=== PATIENT | male | born 1990 | race Caucasian/White ===

== ENCOUNTER 2016-04-15 01:21 | Emergency (ER) | payer BC, OTHER ==
[~2016-04-15 01:21] MED LIST: Z.0.NO CURRENT MEDS
[2016-04-15 01:24] VITALS: BP 179/104; PULSE 98; RESP 18; TEMP 98; O2SAT 99
[2016-04-15] MEDS ORDERED: SODIUM CHLORIDE 0.9% FLUSH 5 ML FLUSH IVF PRN (02:15)
[2016-04-15] MEDS ORDERED: ONDANSETRON HCL 4 MG/2 ML VIAL IV ONE (02:15)
[2016-04-15] MEDS ORDERED: KETOROLAC TROMETHAMINE 30 MG/ML (IVP) VIAL IV PUSH ONE (02:15)
[2016-04-15] MEDS ORDERED: SODIUM CHLOR 0.9% 1000 ML INJ 1,000 ML IV ONE (02:15)
[2016-04-15 02:18] VITALS: O2SAT 98
[2016-04-15 02:51] LABS: AUTOMATED NEUTROPHIL # 9.1 TH/MM3 (1.8-7.7); BASOPHIL % 0.4 % (0.0-2.0); EOSINOPHIL # 0.5 TH/MM3 (0-0.4); EOSINOPHIL % 4.4 % (0.0-4.0); HEMATOCRIT 38.4 % (39.0-51.0); HEMO FLAGS DIFF FINAL; LYMPH % 14.9 % (9.0-44.0); LYMPHOCYTE # 1.8 TH/MM3 (1.0-4.8); MEAN CELL VOLUME 89.6 FL (80.0-100.0); MEAN CORPUSCULAR HEMOGLOBIN 30.6 PG (27.0-34.0); MEAN CORPUSCULAR HGB CONC 34.2 % (32.0-36.0); MONO % 6.2 % (0.0-8.0); NEUT % 74.1 % (16.0-70.0); PLATELET COUNT 268 TH/MM3 (150-450); RED BLOOD COUNT 4.29 MIL/MM3 (4.50-5.90); RED CELL DISTRIBUTION WIDTH 12.6 % (11.6-17.2); WHITE BLOOD COUNT 12.3 TH/MM3 (4.0-11.0)
[2016-04-15 02:54] LABS: BLOOD, URINE MOD (NEG); COMMENT (UR) CULT NOT INDICATED; CULTURE IF INDICATED CULT NOT INDICATED; GLUCOSE,URINE NEG (NEG); KETONE, URINE NEG (NEG); MUCUS URINE FEW /lpf (OCC); NITRITE,URINE NEG (NEG); PH, URINE 5.5 (5.0-8.5); URINE COLOR YELLOW (YELLW/STRAW)
[2016-04-15 03:05] LABS: ALT (GPT) 37 U/L (12-78); ANION GAP 9 MEQ/L (5-15); AST (GOT) 19 U/L (15-37); BICARBONATE 27.8 MEQ/L (21.0-32.0); BLOOD UREA NITROGEN 13 MG/DL (7-18); CHLORIDE 104 MEQ/L (98-107); GLOMERULAR FILTRATION RATE 96 ML/MIN (>89); POTASSIUM 3.9 MEQ/L (3.5-5.1); SODIUM (NA) 141 MEQ/L (136-145)
[2016-04-15 03:07] LABS: ALKALINE PHOSPHATASE 52 U/L (45-117); TOTAL BILIRUBIN ADULT 0.3 MG/DL (0.2-1.0)
--- NOTE | 2016-04-15 03:26 | RADRPT ---
EXAM DATE/TIME: 04/15/2016 02:42 [place] COMPARISON: No previous studies available for comparison. INDICATIONS : Bilateral flank and abdomen pain. ORAL CONTRAST: No oral contrast ingested. RADIATION DOSE: 31.52 CTDIvol (mGy) MEDICAL HISTORY : None SURGICAL HISTORY : None. ENCOUNTER: Initial ACUITY: 3 days PAIN SCALE: 8/10 LOCATION: Bilateral flank abdomen TECHNIQUE: Volumetric scanning of the abdomen and pelvis was performed. Using automated exposure control and ad justment of the mA and/or kV according to patient size, radiation dose was kept as low as reasonably achievable to obtain optimal diagnostic quality images. FINDINGS: Lung bases are clear. No acute findings in the liver, spleen, adrenals, left kidney or pancreas. No c alcified gallstones or biliary ductal dilatation. There is a right-sided obstructive uropathy with mild right hydronephrosis and ureteral dilatation ab ove a 5 mm x 4 mm calculus present in the distal right ureter as it crosses the iliac artery. No blad raquel calculi. No renal calculi. CONCLUSION: 1. Right-sided obstructive uropathy secondary to a 5 mm x 4 mm calculus in the distal right ureter as it crosses the right external iliac artery. No other renal or ureteral or bladder calculi identified . Shahid Price MD on April 15, 2016 at 3:21 Board Certified Radiologist. This report was verified electronically.
--- NOTE | 2016-04-15 03:57 | PD ---
HPI Chief Complaint: Flank/Kidney Pain Time Seen by Provider: 02:15 Travel History International Travel<30 days: No Contact w/Intl Traveler<30days: No Traveled to known affect area: No History of Present Illness HPI The patient is a 25 year old male who presents to the [facility] emergency department with a history of bilateral flank pain that began one week ago. He reports that the pain began to radiate down into bilateral sides of his pelvis. He reports that became worse and more persistent over the last 3 days. He reports that 2 days ago he noticed some blood in his urine, however no blood in his urine since then. He denies having any dysuria, urinary urgency, or urinary frequency. He is however concerned that he may have a kidney stone. He denies ever having a kidney stone previously. He denies having any nausea, vomiting, or diarrhea associated with this. He reports that he last moved his bowels earlier today. He denies having any blood in his stool or black or tarry stools. The patient denies any recent fevers, cough, congestion, neck pain , chest pain, shortness of breath, or neurologic symptoms. FOR[facility]LY [facility], LATER [facility] Past Medical History Narrative Medical The patient's past medical history is significant for none. Medical History: Denies Significant Hx Diminished Hearing: No Tetanus Vaccination: Unknown Influenza Vaccination: No Past Surgical History Narrative Surgical The patient's past surgical history is significant for a tonsillectomy. Tonsillectomy: Yes (when he was 1 years old) Social History Alcohol Use: No Tobacco Use: No Substance Use: No Allergies-Medications (Allergen,Severity, Reaction): Coded Allergies: Penicillin (Verified Allergy, Mild, 04/15/16) Reported Meds & Prescriptions Reported Meds & Active Scripts Active No Active Prescriptions or Reported Medications Review of Systems Except as stated in HPI: all other systems reviewed are Neg General / Constitutional: No: Fever Eyes: No: Visual changes HENT: No: Headaches Cardiovascular: No: Chest Pain or Discomfort Respiratory: No: Shortness of Breath Gastrointestinal: Positive: Abdominal Pain, No: Nausea, Vomiting, Diarrhea, Changes in Bowel Habits, Loss of Appetite Genitourinary: Positive: Hematuria, Flank Pain (bilateral), No: Urgency, Frequency, Dysuria Musculoskeletal: No: Pain Skin: No Rash Neurologic: No: Weakness, Focal Abnormalities, Change in Mentation, Sensory Disturbance Psychiatric: No: Depression Endocrine: No: Polydipsia Hematologic/Lymphatic: No: Easy Bruising Physical Exam Narrative General: The patient is a well-developed well-nourished male in no acute distress. Head and Neck exam: Head is normocephalic atraumatic. Eyes: Pupils are equal round and reactive to light. Nose: Midline septum with pink mucous membranes Mouth: Dentition unremarkable. Moist mucus membranes. Posterior oropharynx is not erythematous. No tonsillar hypertrophy. Uvula midline. Airway patent. Neck: No palpable lymphadenopathy. No nuchal rigidity. No thyromegaly. Cardiovascular: Regular rate and rhythm without murmurs, gallops, or rubs. Lungs: Clear to auscultation bilaterally. No wheezes, rhonchi, or rales. Abdomen: Soft, with tenderness on palpation of bilateral lower quadrants of the abdomen and down into the pelvis, no tenderness on palpation of the upper quadrants of the abdomen. Negative Toledo's sign. No tenderness on palpation of McBurney's point. No guarding, rebound, or rigidity. Extremities: No clubbing, cyanosis, or edema. 2+ pulses in all 4 extremities. No calf tenderness on palpation. Back: No spinous process tenderness to palpation. No costovertebral angle tenderness to palpation. Neurologic Exam: Grossly nonfocal. Skin Exam: No rash noted. Intact skin that is warm and dry. Data Data Last Documented VS Vital Signs Date Time Temp Pulse Resp B/P Pulse Ox O2 Delivery O2 Flow Rate FiO2 04/15/16 02:18 98 Room Air 04/15/16 01:26 16 04/15/16 01:24 98.0 98 179/104 Orders Complete Blood Count With Diff (04/15/16 02:15) Comprehensive Metabolic Panel (04/15/16 02:15) Lipase (04/15/16 02:15) Urinalysis - C+S If Indicated (04/15/16 02:15) Ct Abd/Pel W/O Iv Contrast (04/15/16 02:15) Iv Access Insert/Monitor (04/15/16 02:15) Ecg Monitoring (04/15/16 02:15) Oximetry (04/15/16 02:15) Sodium Chloride 0.9% Flush (Ns Flush) (04/15/16 02:15) Sodium Chlor 0.9% 1000 Ml Inj (Ns 1000 M (04/15/16 02:15) Ondansetron Inj (Zofran Inj) (04/15/16 02:15) Ketorolac Inj (Toradol Inj) (04/15/16 02:15) Labs Laboratory Tests Test 04/15/16 04/15/16 02:09 02:30 White Blood Count 12.3 TH/MM3 Red Blood Count 4.29 MIL/MM3 Hemoglobin 13.1 GM/DL Hematocrit 38.4 % Mean Corpuscular Volume 89.6 FL Mean Corpuscular Hemoglobin 30.6 PG Mean Corpuscular Hemoglobin 34.2 % Concent Red Cell Distribution Width 12.6 % Platelet Count 268 TH/MM3 Mean Platelet Volume 8.3 FL Neutrophils (%) (Auto) 74.1 % Lymphocytes (%) (Auto) 14.9 % Monocytes (%) (Auto) 6.2 % Eosinophils (%) (Auto) 4.4 % Basophils (%) (Auto) 0.4 % Neutrophils # (Auto) 9.1 TH/MM3 Lymphocytes # (Auto) 1.8 TH/MM3 Monocytes # (Auto) 0.8 TH/MM3 Eosinophils # (Auto) 0.5 TH/MM3 Basophils # (Auto) 0.0 TH/MM3 CBC Comment DIFF FINAL Differential Comment Sodium Level 141 MEQ/L Potassium Level 3.9 MEQ/L Chloride Level 104 MEQ/L Carbon Dioxide Level 27.8 MEQ/L Anion Gap 9 MEQ/L Blood Urea Nitrogen 13 MG/DL Creatinine 0.95 MG/DL Estimat Glomerular Filtration 96 ML/MIN Rate Random Glucose 140 MG/DL Calcium Level 9.0 MG/DL Total Bilirubin 0.3 MG/DL Aspartate Amino Transf 19 U/L (AST/SGOT) Alanine Aminotransferase 37 U/L (ALT/SGPT) Alkaline Phosphatase 52 U/L Total Protein 7.6 GM/DL Albumin 4.0 GM/DL Lipase 154 U/L Urine Color YELLOW Urine Turbidity CLEAR Urine pH 5.5 Urine Specific [place] 1.016 Urine Protein NEG mg/dL Urine Glucose (UA) NEG mg/dL Urine Ketones NEG mg/dL Urine Occult Blood MOD Urine Nitrite NEG Urine Bilirubin NEG Urine Urobilinogen LESS THAN 2.0 MG/DL Urine Leukocyte Esterase NEG Urine RBC /hpf Urine WBC 8 /hpf Urine Mucus FEW /lpf Urine Yeast (Budding) OCC Microscopic Urinalysis Comment CULT NOT INDICATED MDM Medical Decision Making Medical Screen Exam Complete: Yes Emergency Medical Condition: Yes Medical Record Reviewed: Yes Interpretation(s) Laboratory Tests Test 04/15/16 04/15/16 02:09 02:30 White Blood Count 12.3 TH/MM3 Red Blood Count 4.29 MIL/MM3 Hemoglobin 13.1 GM/DL Hematocrit 38.4 % Mean Corpuscular Volume 89.6 FL Mean Corpuscular Hemoglobin 30.6 PG Mean Corpuscular Hemoglobin 34.2 % Concent Red Cell Distribution Width 12.6 % Platelet Count 268 TH/MM3 Mean Platelet Volume 8.3 FL Neutrophils (%) (Auto) 74.1 % Lymphocytes (%) (Auto) 14.9 % Monocytes (%) (Auto) 6.2 % Eosinophils (%) (Auto) 4.4 % Basophils (%) (Auto) 0.4 % Neutrophils # (Auto) 9.1 TH/MM3 Lymphocytes # (Auto) 1.8 TH/MM3 Monocytes # (Auto) 0.8 TH/MM3 Eosinophils # (Auto) 0.5 TH/MM3 Basophils # (Auto) 0.0 TH/MM3 CBC Comment DIFF FINAL Differential Comment Sodium Level 141 MEQ/L Potassium Level 3.9 MEQ/L Chloride Level 104 MEQ/L Carbon Dioxide Level 27.8 MEQ/L Anion Gap 9 MEQ/L Blood Urea Nitrogen 13 MG/DL Creatinine 0.95 MG/DL Estimat Glomerular Filtration 96 ML/MIN Rate Random Glucose 140 MG/DL Calcium Level 9.0 MG/DL Total Bilirubin 0.3 MG/DL Aspartate Amino Transf 19 U/L (AST/SGOT) Alanine Aminotransferase 37 U/L (ALT/SGPT) Alkaline Phosphatase 52 U/L Total Protein 7.6 GM/DL Albumin 4.0 GM/DL Lipase 154 U/L Urine Color YELLOW Urine Turbidity CLEAR Urine pH 5.5 Urine Specific [place] 1.016 Urine Protein NEG mg/dL Urine Glucose (UA) NEG mg/dL Urine Ketones NEG mg/dL Urine Occult Blood MOD Urine Nitrite NEG Urine Bilirubin NEG Urine Urobilinogen LESS THAN 2.0 MG/DL Urine Leukocyte Esterase NEG Urine RBC /hpf Urine WBC 8 /hpf Urine Mucus FEW /lpf Urine Yeast (Budding) OCC Microscopic Urinalysis Comment CULT NOT INDICATED Last Impressions Abdomen/Pelvis CT 04/15/16 0215 Signed Impressions: Service Date/Time: Friday, April 15, 2016 02:42 - CONCLUSION: 1. Right- sided obstructive uropathy secondary to a 5 mm x 4 mm calculus in the distal right ureter as it crosses the right external iliac artery. No other renal or ureteral or bladder calculi identified. Shahid Price MD Differential Diagnosis Pyelonephritis, versus constipation, versus diverticulitis, versus musculoskeletal strain, versus colitis, versus kidney stone Narrative Course During the course of the patients emergency department visit, the patients history, examination, and differential diagnosis were reviewed with the patient. The patient had IV access obtained and blood work sent for analysis. The patient was put on a telemetry monitor with oximetry and blood pressure monitoring. A CT scan of the abdomen and pelvis was ordered to evaluate for possible kidney stone. The patient was provided normal saline 1 L IV fluid bolus, Toradol 30 mg IV. The patients laboratory studies were reviewed and remarkable for a white count of 12.3, hemoglobin 13.1, platelets 268, neutrophils 74.1, CMP is remarkable for a glucose of 140, lipase 154, urinalysis shows moderate occult blood innumerable rbc's 8 WBCs. Radiology studies were reviewed and remarkable for a CT scan of the abdomen and pelvis that reveals a right-sided obstructive uropathy, secondary to a 5 mm x 4 mm calculus in the distal right ureter as it crosses the right external iliac artery, no other renal or ureteral calculi. The patient will be discharged home with a prescription for pain medication, Flomax, and also provided a urine strainer. The patient will be given the name of the urologist on-call, Dr. Mckeon for follow-up with this week. The patient is resting comfortably and feels better, is alert and in no distress. The patients results and examination findings were discussed with the patient. The repeat examination is unremarkable and benign. The history, exam, diagnostic testing, and current condition do not suggest any significant pathology to warrant further testing, continued ED treatment, admission, or surgical evaluation at this point. The vital signs have been stable. The patient does not have uncontrollable pain, intractable vomiting, or other significant symptoms. The patient's condition is stable and appropriate for discharge. The patient will pursue further outpatient evaluation with a primary care physician or other designated or consulting physician as indicated in the discharge instructions. The patient expressed understanding and was agreeable with this plan. Diagnosis Primary Impression: Ureteral calculi Referrals: Nuno Mckeon MD 2 days Patient Instructions: General Instructions, Kidney Stones (ED) Departure Forms: Tests/Procedures, Work Release Enter return to work date: Apr 17, 2016 Med/Other Pt SpecificInfo: Prescription(s) given Scripts Ibuprofen 600 Mg [id number] Mg PO Q8HR PRN (PAIN) #12 TAB Ref 0 Prov:Evelia Holder MD 04/15/16 Hydrocodone-Acetaminophen (Lortab)7.5-325 Mg Tab1 Tab PO Q6H PRN (PAIN) #12 TAB Ref 0 Prov:Evelia Holder MD 04/15/16 Tamsulosin (Flomax)0.4 Mg Cap0.4 Mg PO HS #14 CAP Ref 0 Prov:Evelia Holder MD 04/15/16 Disposition: 01 DISCHARGE HOME Condition: Stable Evelia Holder MD Apr 15, 2016 03:57
[2016-04-15] MEDS ORDERED: HYDR-3534 PO (04:05)
[2016-04-15] MEDS ORDERED: IBUP-232 PO (04:05)
[2016-04-15] MEDS ORDERED: TAMS5CAP PO (04:05)
== END 2016-04-15 04:25 | disposition home or self-care (01) ==
LOC: NEPE 01:21
DX: N20.1 Calculus of ureter (principal); N13.9 Obstructive and reflux uropathy, unspecified; R31.9 Hematuria, unspecified
CPT/HCPCS: 74176; 80053; 81001; 83690; 85025; 96361; 96374; 96375; 99284; J1885; J2405; J7030

== ENCOUNTER 2016-06-21 00:38 | Emergency (ER) | payer BC ==
[~2016-06-21] VITALS: Ht 170.2 cm; Wt 121.0 kg
[~2016-06-21 00:38] MED LIST changes: +HYDR-3534 PO; +IBUP-232 PO; +TAMS5CAP PO; -Z.0.NO CURRENT MEDS
[2016-06-21 00:39] VITALS: BP 176/112; PULSE 106; RESP 18; TEMP 98.9; O2SAT 99
[2016-06-21] MEDS ORDERED: MORPHINE SULFATE 4 MG/ML INJ IV ONE (01:45)
[2016-06-21] MEDS ORDERED: KETOROLAC TROMETHAMINE 30 MG/ML (IVP) VIAL IV PUSH ONE (01:45)
[2016-06-21] MEDS ORDERED: ONDANSETRON HCL 4 MG/2 ML VIAL IV PUSH ONE (01:45)
[2016-06-21] MEDS ORDERED: SODIUM CHLOR 0.9% 1000 ML INJ 1,000 ML IV ONE (01:45)
[2016-06-21] MEDS ORDERED: ONDANSETRON HCL 4 MG/2 ML VIAL ONE (01:50)
[2016-06-21] MEDS ORDERED: MORPHINE SULFATE 4 MG/ML INJ ONE (01:50)
[2016-06-21] MEDS ORDERED: KETOROLAC TROMETHAMINE 30 MG/ML (IVP) VIAL ONE (01:50)
--- NOTE | 2016-06-21 03:12 | PD ---
HPI Chief Complaint: Flank/Kidney Pain Time Seen by Provider: 02:37 Travel History International Travel<30 days: No Contact w/Intl Traveler<30days: No Traveled to known affect area: No History of Present Illness HPI Is a 25 year-old man who presents to the emergency department complaining of right sided flank pain. He underwent a procedure on the second, 5 days ago, with Dr. Velasquez, bradycardia had ureteroscopy, laser lithotripsy, and ureteral stent placed. He's been doing well with intermittent pain. Tonight the patient was worse and it wasn't really relieved with his Percocet. No fevers or chills. Some nausea but no vomiting. No other complaints. History Past Medical History Medical History: Denies Significant Hx Tetanus Vaccination: < 5 Years Influenza Vaccination: Yes Social History Alcohol Use: Yes (2 XS WEEKLY) Tobacco Use: No Allergies-Medications (Allergen,Severity, Reaction): Coded Allergies: Penicillin (Verified Allergy, Mild, 06/21/16) Reported Meds & Prescriptions Reported Meds & Active Scripts Active Ibuprofen 600 Mg Tab 600 Mg PO Q8HR PRN Lortab (Hydrocodone-Acetaminophen) 7.5-325 Mg Tab 1 Tab PO Q6H PRN Flomax (Tamsulosin HCl) 0.4 Mg Cap 0.4 Mg PO HS Review of Systems Except as stated in HPI: all other systems reviewed are Neg Physical Exam Narrative GENERAL: 25 year-old man, no acute distress. SKIN: Focused skin assessment warm/dry. CARDIOVASCULAR: Regular rate and rhythm. No murmur appreciated. RESPIRATORY: No accessory muscle use. Clear to auscultation. Breath sounds equal bilaterally. GASTROINTESTINAL: Abdomen soft, non-tender, nondistended. Hepatic and splenic margins not palpable. MUSCULOSKELETAL: No obvious deformities. No clubbing. No cyanosis. No edema. NEUROLOGICAL: Awake and alert. No obvious cranial nerve deficits. Motor grossly within normal limits. Normal speech. PSYCHIATRIC: Appropriate mood and affect; insight and judgment normal. Data Data Last Documented VS Vital Signs Date Time Temp Pulse Resp B/P Pulse Ox O2 Delivery O2 Flow Rate FiO2 06/21/16 00:39 98.9 106 18 176/112 99 Room Air Orders Ketorolac Inj (Toradol Inj) (06/21/16 01:50) Ondansetron Inj (Zofran Inj) (06/21/16 01:50) Morphine Inj (Morphine Inj) (06/21/16 01:50) Morphine Inj (Morphine Inj) (06/21/16 01:45) Ketorolac Inj (Toradol Inj) (06/21/16 01:45) Ondansetron Inj (Zofran Inj) (06/21/16 01:45) Sodium Chlor 0.9% 1000 Ml Inj (Ns 1000 M (06/21/16 01:45) MDM Medical Decision Making Medical Screen Exam Complete: Yes Emergency Medical Condition: Yes Differential Diagnosis Renal lithiasis, ureterolithiasis, obstruction, malfunctioning stent, other Narrative Course Medical decision making To 25 year-old man who presents emergency Department with right flank pain following laser lithotripsy and stent placement. Point of care or ultrasound shows no significant hydronephrosis. Recommend outpatient follow-up. Patient was seen and evaluated discharge during downtime. Patient was given Verbal and written discharge instructions. Procedures Procedure Narrative Point of care ultrasound: Focus transabdominal ultrasound performed by me at the bedside to evaluate for presence or absence of hydronephrosis shows no significant hydronephrosis on the right. Diagnosis Primary Impression: Flank pain Disposition: DISCHARGE HOME Condition: Stable Ernst Bedolla MD June 21, 2016 03:12
== END 2016-06-21 03:54 | disposition home or self-care (01) ==
LOC: NED 00:38 → NEPC 03:54
DX: R10.9 Unspecified abdominal pain (principal); Z88.0 Allergy status to penicillin
CPT/HCPCS: 99283; J1885; J2270; J2405

== ENCOUNTER 2016-09-09 14:01 | Emergency (ER) | payer BC ==
[~2016-09-09] VITALS: Ht 170.2 cm; Wt 120.0 kg
[2016-09-09 14:47] VITALS: BP 109/60; PULSE 112; RESP 24; TEMP 98.8; O2SAT 97
[2016-09-09 14:52] VITALS: BP 145/64; PULSE 110; RESP 18; O2SAT 97
[2016-09-09] MEDS ORDERED: SODIUM CHLOR 0.9% 1000 ML INJ 1,000 ML IV SCH (14:56)
[2016-09-09] MEDS ORDERED: SODIUM CHLOR 0.9% 1000 ML INJ 1,000 ML IV ONE (14:56)
[2016-09-09] MEDS ORDERED: ONDANSETRON HCL 4 MG/2 ML VIAL IV PUSH ONE (15:00)
[2016-09-09] MEDS ORDERED: SODIUM CHLORIDE 0.9% FLUSH 10 ML FLUSH IVF PRN (15:00)
--- NOTE | 2016-09-09 15:05 | PD ---
HPI Chief Complaint: GI Complaint Time Seen by Provider: 14:45 Travel History International Travel<30 days: No Contact w/Intl Traveler<30days: No Traveled to known affect area: No History of Present Illness HPI 25-year-old male with no significant past medical history presents for evaluation of nausea, vomiting, diarrhea. Symptoms started this morning. He reports at least 10 episodes of diarrhea and vomiting today. He reports that the diarrhea was bloody in appearance. He denies any abdominal pain, fevers or chills, flank pain. He does report that last night he ate some salmon and sushi. Beyond that, he denies any unusual foods. Denies any sick contacts or recent travel. Denies any recent antibiotic use. He has no other complaints at this time. Primary care physician is Dr. Randolph. [facility] Past Medical History Diminished Hearing: No Past Surgical History Tonsillectomy: Yes (when he was 1 years old) Other Surgery: Yes (STENT PLACED RIGHT KIDNEY.) Social History Alcohol Use: Yes (2 XS WEEKLY) Tobacco Use: No Substance Use: No Allergies-Medications (Allergen,Severity, Reaction): Coded Allergies: Penicillin (Verified Allergy, Mild, 06/21/16) Reported Meds & Prescriptions Reported Meds & Active Scripts Active Zofran Odt (Ondansetron Odt) 4 Mg Tab 4 Mg SL Q6HR PRN Review of Systems Except as stated in HPI: all other systems reviewed are Neg Physical Exam Narrative GENERAL: Well-developed well-nourished male in no acute distress. He does appear slightly pale and tachycardic. SKIN: Warm and dry. HEAD: Atraumatic. Normocephalic. EYES: Pupils equal and round. No scleral icterus. No injection or drainage. ENT: No nasal bleeding or discharge. Mucous membranes pink and moist. NECK: Trachea midline. No JVD. CARDIOVASCULAR: Regular rate and rhythm. No murmur appreciated. RESPIRATORY: No accessory muscle use. Clear to auscultation. Breath sounds equal bilaterally. GASTROINTESTINAL: Abdomen soft, non-tender, nondistended. Hepatic and splenic margins not palpable. Rectal examination reveals no obvious anal fissures or external hemorrhoids. Hemoccult positive. MUSCULOSKELETAL: No obvious deformities. No clubbing. No cyanosis. No edema. NEUROLOGICAL: Awake and alert. No obvious cranial nerve deficits. Motor grossly within normal limits. Normal speech. PSYCHIATRIC: Appropriate mood and affect; insight and judgment normal. Data Data Last Documented VS Vital Signs Date Time Temp Pulse Resp B/P Pulse Ox O2 Delivery O2 Flow Rate FiO2 09/09/16 17:16 106 18 103/65 98 Room Air 09/09/16 14:47 98.8 Orders Complete Blood Count With Diff (09/09/16 14:56) Comprehensive Metabolic Panel (09/09/16 14:56) Lipase (09/09/16 14:56) Iv Access Insert/Monitor (09/09/16 14:56) Ecg Monitoring (09/09/16 14:56) Oximetry (09/09/16 14:56) Sodium Chlor 0.9% 1000 Ml Inj (Ns 1000 M (09/09/16 14:56) Sodium Chloride 0.9% Flush (Ns Flush) (09/09/16 15:00) Enteric Path (Stool) (09/09/16 14:56) Rotavirus Ag Detection (Stool) (09/09/16 14:56) Sodium Chlor 0.9% 1000 Ml Inj (Ns 1000 M (09/09/16 14:56) Ondansetron Inj (Zofran Inj) (09/09/16 15:00) Urinalysis - C+S If Indicated (09/09/16 14:56) Stool Wbc (Leukocytes) (09/09/16 14:56) Potassium, Serum (K) (09/09/16 16:19) Labs Laboratory Tests Test 09/09/16 09/09/16 09/09/16 15:12 16:00 16:35 White Blood Count 15.9 TH/MM3 Red Blood Count 4.82 MIL/MM3 Hemoglobin 14.7 GM/DL Hematocrit 44.4 % Mean Corpuscular Volume 92.1 FL Mean Corpuscular Hemoglobin 30.5 PG Mean Corpuscular Hemoglobin 33.1 % Concent Red Cell Distribution Width 12.9 % Platelet Count 326 TH/MM3 Mean Platelet Volume 8.4 FL Neutrophils (%) (Auto) 86.8 % Lymphocytes (%) (Auto) 3.1 % Monocytes (%) (Auto) 9.2 % Eosinophils (%) (Auto) 0.7 % Basophils (%) (Auto) 0.2 % Neutrophils # (Auto) 13.8 TH/MM3 Lymphocytes # (Auto) 0.5 TH/MM3 Monocytes # (Auto) 1.5 TH/MM3 Eosinophils # (Auto) 0.1 TH/MM3 Basophils # (Auto) 0.0 TH/MM3 CBC Comment DIFF FINAL Differential Comment Sodium Level 138 MEQ/L Potassium Level 5.6 MEQ/L 4.4 MEQ/L Chloride Level 105 MEQ/L Carbon Dioxide Level 24.6 MEQ/L Anion Gap 8 MEQ/L Blood Urea Nitrogen 17 MG/DL Creatinine 1.07 MG/DL Estimat Glomerular Filtration 84 ML/MIN Rate Random Glucose 116 MG/DL Calcium Level 9.0 MG/DL Total Bilirubin 0.8 MG/DL Aspartate Amino Transf 43 U/L (AST/SGOT) Alanine Aminotransferase 46 U/L (ALT/SGPT) Alkaline Phosphatase 55 U/L Total Protein 8.3 GM/DL Albumin 4.1 GM/DL Lipase 140 U/L Urine Color YELLOW Urine Turbidity CLEAR Urine pH 7.0 Urine Specific [place] 1.030 Urine Protein 30 mg/dL Urine Glucose (UA) NEG mg/dL Urine Ketones NEG mg/dL Urine Occult Blood NEG Urine Nitrite NEG Urine Bilirubin NEG Urine Urobilinogen LESS THAN 2.0 MG/DL Urine Leukocyte Esterase NEG Urine RBC 2 /hpf Urine WBC 1 /hpf Urine Mucus FEW /lpf Microscopic Urinalysis Comment CULT NOT INDICATED MDM Medical Decision Making Medical Screen Exam Complete: Yes Emergency Medical Condition: Yes Medical Record Reviewed: Yes Differential Diagnosis Gastroenteritis, food poisoning, dehydration, electrolyte abnormality, GI bleed Narrative Course This is a 25 her old male who reports that he ate some salmon sushi yesterday evening. He woke up today with multiple episodes of nausea, vomiting and diarrhea. The diarrhea has been bloody. He is had no abdominal pain and his abdomen is soft and nontender. He has no history of C. difficile and denies any recent antibiotic use I doubt C. difficile. I do suspect food poisoning/ gastroenteritis. Given the history of bloody stools, enteric pathogen stool cultures have been ordered. Plan is for basic lab work, 2 L of IV fluids have been initiated, he will be given Zofran for his nausea. The patient's lab work has been reviewed. Upon reexamination he feels significantly improved. The patient was able to make a stool sample which is currently pending. He is stable for discharge. [facility] Point of Care Internal Pos. & Neg. Controls: Passed Fecal Specimen Occult Blood: Positive Diagnosis Primary Impression: Gastroenteritis Additional Instructions: Zofran as needed for diet. Stay well hydrated. Slowly advance diet as tolerated. Follow up in 3-4 days with primary care physician for recheck. Return for any emergent medical conditions. Med/Other Pt SpecificInfo: Prescription(s) given Scripts Ondansetron Odt (Zofran Odt)4 Mg Tab4 Mg SL Q6HR PRN (Nausea/Vomiting) #30 TAB Ref 0 Prov:Brady Andrade MD 09/09/16 Disposition: 01 DISCHARGE HOME Condition: Stable Richar Barrios Sep 09, 2016 15:05
[2016-09-09 15:49] LABS: AUTOMATED NEUTROPHIL # 13.8 TH/MM3 (1.8-7.7); BASOPHIL % 0.2 % (0.0-2.0); EOSINOPHIL # 0.1 TH/MM3 (0-0.4); EOSINOPHIL % 0.7 % (0.0-4.0); HEMATOCRIT 44.4 % (39.0-51.0); HEMO FLAGS DIFF FINAL; LYMPH % 3.1 % (9.0-44.0); LYMPHOCYTE # 0.5 TH/MM3 (1.0-4.8); MEAN CELL VOLUME 92.1 FL (80.0-100.0); MEAN CORPUSCULAR HEMOGLOBIN 30.5 PG (27.0-34.0); MEAN CORPUSCULAR HGB CONC 33.1 % (32.0-36.0); MONO % 9.2 % (0.0-8.0); NEUT % 86.8 % (16.0-70.0); PLATELET COUNT 326 TH/MM3 (150-450); RED BLOOD COUNT 4.82 MIL/MM3 (4.50-5.90); RED CELL DISTRIBUTION WIDTH 12.9 % (11.6-17.2); WHITE BLOOD COUNT 15.9 TH/MM3 (4.0-11.0)
[2016-09-09 16:07] LABS: ALKALINE PHOSPHATASE 55 U/L (45-117); TOTAL BILIRUBIN ADULT 0.8 MG/DL (0.2-1.0)
[2016-09-09 16:15] LABS: ALT (GPT) 46 U/L (12-78); ANION GAP 8 MEQ/L (5-15); AST (GOT) 43 U/L (15-37); BICARBONATE 24.6 MEQ/L (21.0-32.0); BLOOD UREA NITROGEN 17 MG/DL (7-18); CHLORIDE 105 MEQ/L (98-107); GLOMERULAR FILTRATION RATE 84 ML/MIN (>89); POTASSIUM 5.6 MEQ/L (3.5-5.1); SODIUM (NA) 138 MEQ/L (136-145)
[2016-09-09 17:09] LABS: BLOOD, URINE NEG (NEG); COMMENT (UR) CULT NOT INDICATED; CULTURE IF INDICATED CULT NOT INDICATED; GLUCOSE,URINE NEG (NEG); KETONE, URINE NEG (NEG); MUCUS URINE FEW /lpf (OCC); NITRITE,URINE NEG (NEG); URINE COLOR YELLOW (YELLW/STRAW)
[2016-09-09 17:16] VITALS: BP 103/65; PULSE 106; RESP 18; O2SAT 98
[2016-09-09] MEDS ORDERED: ZOFR4TAB3 SL (17:53)
== END 2016-09-09 20:18 | disposition home or self-care (01) ==
LOC: NEPC 14:01
DX: K52.9 Noninfective gastroenteritis and colitis, unspecified (principal)
CPT/HCPCS: 80053; 81001; 83690; 84132; 85025; 87205; 87425; 87506; 96361; 96374; 99284; J2405; J7030